=== PATIENT | female | born 1945 | race Caucasian/White ===

== ENCOUNTER → 2018-03-25 12:45 | Outpatient (CLI) | payer MEDICARE, SELFPAY ==
--- NOTE | 2018-03-25 12:47 | ECHOD_ITS ---
Reason For Study: MURMUR Procedure This was a 2D Doppler, Color Flow transthoracic echocardiogram. Myocardial strain analysis was performed in this exam to aid in the assessment of cardiac function. The exam was of adequate technical quality. Exam performed in department. Left Ventricle Normal LV size. Left ventricular systolic function is normal. The estimated ejection fraction is 60 %. The global longitudinal strain = -20 % (normal). Diastolic function is indeterminate. No regional wall motion abnormalities noted. Right Ventricle Normal RV size. Normal systolic function. Atria Normal left atrium. Normal right atrium. No doppler evidence for ASD. Mitral Valve There is no mitral annular calcification. Normal mitral valve. Mild-Moderate (1-2+) mitral valve insufficiency. Tricuspid Valve Normal tricuspid valve. Mild tricuspid valve insufficiency. Right ventricular systolic pressure estimated to be 29 mmHg. Aortic Valve Trisinus/trileaflet aortic valve. Mild focal aortic valve thickening. Trivial aortic valve insufficiency. Pulmonic Valve The pulmonic valve is not well visualized. Trivial pulmonic valve insufficiency. Great Vessels Normal sized aortic root. Calcified aortic root. Pericardium/Pleural Trivial pericardial effusion. There are no echocardiographic indications of cardiac tamponade. MMode/2D Measurements & Calculations LVIDd: 4.5 cm IVSd: 0.93 cm Ao root diam: 3.5 cm LVIDs: 3.3 cm LVPWd: 0.92 cm LA dimension: 3.9 cm RVDd: 3.1 cm FS: 26.8 % LAV(MOD-bp): 43.7 ml LVAd ap4: 27.6 cm2 SV(MOD-sp4): 41.0 ml LAV(MOD-bp) Indexed: 25.0 ml/m2 EDV(MOD-sp4): 77.9 ml LAV(MOD-sp2): 37.8 ml EDV(sp4-el): 82.2 ml LAV(MOD-sp4): 47.1 ml LVAs ap4: 16.9 cm2 ESV(MOD-sp4): 36.8 ml ESV(sp4-el): 38.4 ml EF(MOD-sp4): 52.7 % EF(sp4-el): 53.3 % SV(sp4-el): 43.8 ml LA A4 area: 16.8 cm2 RA A4 area: 13.5 cm2 Time Measurements MV dec time: 0.28 sec Doppler Measurements & Calculations MV E max link: 63.5 cm/sec Lat Peak E' Link: 9.7 cm/sec Med Peak E' Link: 4.8 cm/sec MV A max link: 82.2 cm/sec E/E' lat: 6.6 E/E' med: 13.3 MV E/A: 0.77 Ao V2 max: 171.0 cm/sec AI max link: 411.3 cm/sec LV V1 max: 83.4 cm/sec Ao max P.7 mmHg AI max P.7 mmHg LV V1 max P.8 mmHg Ao V2 mean: 125.2 cm/sec AI dec slope: 227.5 cm/sec2 LV V1 mean P.7 mmHg Ao mean P.9 mmHg AI P1/2t: 529.5 msec LV V1 mean: 62.8 cm/sec Ao V2 VTI: 39.5 cm LV V1 VTI: 19.1 cm PA V2 max: 78.1 cm/sec PI end-d link: 97.8 cm/sec TR max link: 253.5 cm/sec TR max P.0 mmHg Interpretation Summary Left ventricular systolic function is normal. The estimated ejection fraction is 60 %. The global longitudinal strain = -20 % (normal). Mild-Moderate (1-2+) mitral valve insufficiency. Mild tricuspid valve insufficiency. Mild focal aortic valve thickening. Trivial aortic valve insufficiency. Trivial pulmonic valve insufficiency. Calcified aortic root. Trivial pericardial effusion. There are no echocardiographic indications of cardiac tamponade. Right ventricular systolic pressure estimated to be 29 mmHg. Diastolic function is indeterminate. Ordering Physician: James Skinner Referring Physician: JOSHUA TREJO Performed By: Jordyn Moffett, DOREEN, RVT
== END ==
PROVIDERS: Family Provider Family Medicine; PCP Family Medicine; Referring Provider Internal Medicine Cardiovascular Disease; Visit Provider Internal Medicine Cardiovascular Disease
DX: I42.7 Cardiomyopathy due to drug and external agent (principal); I34.0 Nonrheumatic mitral (valve) insufficiency
CPT/HCPCS: 93306

== ENCOUNTER → 2019-03-31 10:45 | Outpatient (CLI) | payer MEDICARE, SELFPAY ==
[2018-09-24 13:17] VITALS: BMI 30.3
--- NOTE | 2019-03-31 10:46 | ECHODONC_ITS ---
Reason For Study: CMP Procedure Myocardial strain analysis was performed in this exam to aid in the assessment of cardiac function. This was a 2D Doppler, Color Flow transthoracic echocardiogram. The exam was of adequate technical quality. Exam performed in department. Left Ventricle Normal LV size. Left ventricular systolic function is normal. The estimated ejection fraction is 55 %. The global longitudinal strain = -18 % (normal). Diastolic function is indeterminate. No regional wall motion abnormalities noted. Right Ventricle Normal RV size. Normal systolic function. Atria Normal left atrium. Normal right atrium. No doppler evidence for ASD. Mitral Valve There is no mitral annular calcification. Mild diffuse mitral valve thickening. Mild (1+) mitral valve insufficiency. Tricuspid Valve Normal tricuspid valve. Mild tricuspid valve insufficiency. Right ventricular systolic pressure estimated to be 23 mmHg. Aortic Valve Trisinus/trileaflet aortic valve. Mild focal aortic valve thickening. Mild focal aortic valve calcification. Trivial aortic valve insufficiency. Pulmonic Valve The pulmonic valve is not well visualized. Mild (1+) pulmonic valve insufficiency. Great Vessels Normal sized aortic root. Pericardium/Pleural No pericardial effusion. MMode/2D Measurements & Calculations LVIDd: 4.6 cm IVSd: 1.0 cm Ao root diam: 3.1 cm LVIDs: 3.3 cm LVPWd: 1.0 cm LA dimension: 3.9 cm RVDd: 3.5 cm FS: 27.7 % LAV(MOD-bp): 57.1 ml LVAd ap4: 28.8 cm2 SV(MOD-sp4): 49.5 ml LAV(MOD-bp) Indexed: 33.4 ml/m2 EDV(MOD-sp4): 86.6 ml LAV(MOD-sp2): 52.2 ml EDV(sp4-el): 90.2 ml LAV(MOD-sp4): 51.5 ml LVAs ap4: 16.6 cm2 ESV(MOD-sp4): 37.1 ml ESV(sp4-el): 37.2 ml EF(MOD-sp4): 57.2 % EF(sp4-el): 58.7 % SV(sp4-el): 53.0 ml LA A4 area: 17.0 cm2 RA A4 area: 14.2 cm2 Time Measurements MV dec time: 0.23 sec Doppler Measurements & Calculations MV E max link: 59.5 cm/sec Lat Peak E' Link: 6.9 cm/sec Med Peak E' Link: 5.7 cm/sec MV A max link: 90.6 cm/sec E/E' lat: 8.6 E/E' med: 10.5 MV E/A: 0.66 MV V2 max: 101.2 cm/sec MV P1/2t max link: 82.3 cm/sec Ao V2 max: 152.7 cm/sec MV max P.1 mmHg MV P1/2t: 74.2 msec Ao max P.3 mmHg MV V2 mean: 54.6 cm/sec MV mean P.4 mmHg MV dec slope: 324.6 cm/sec2 MV V2 VTI: 26.0 cm MVA(P1/2t): 3.0 cm2 AI max link: 397.0 cm/sec LV V1 max: 108.9 cm/sec MR max link: 484.0 cm/sec AI max P.1 mmHg LV V1 max P.7 mmHg MR max P.7 mmHg AI dec slope: 265.9 cm/sec2 MR mean link: 360.4 cm/sec AI P1/2t: 437.2 msec MR mean P.7 mmHg MR VTI: 167.8 cm PA V2 max: 75.1 cm/sec PI end-d link: 83.8 cm/sec TR max link: 225.8 cm/sec TR max P.4 mmHg Interpretation Summary Left ventricular systolic function is normal. The estimated ejection fraction is 55 %. The global longitudinal strain = -18 % (normal). Mild diffuse mitral valve thickening. Mild (1+) mitral valve insufficiency. Mild tricuspid valve insufficiency. Mild focal aortic valve thickening. Mild focal aortic valve calcification. Trivial aortic valve insufficiency. Mild (1+) pulmonic valve insufficiency. Right ventricular systolic pressure estimated to be 23 mmHg. Diastolic function is indeterminate. Ordering Physician: Abhijeet Braun Referring Physician: Abhijeet Braun Performed By: Gary Clarke RCS
== END ==
PROVIDERS: Family Provider Family Medicine; PCP Family Medicine; Referring Provider Nurse Practitioner Family; Visit Provider Nurse Practitioner Family
DX: I42.7 Cardiomyopathy due to drug and external agent (principal)
CPT/HCPCS: 0399T; 93306

== ENCOUNTER → 2020-10-25 12:49 | Outpatient (CLI) | payer MEDICARE, SELFPAY ==
[2020-09-14 11:01] VITALS: BMI 28.5
--- NOTE | 2020-10-25 12:55 | ECHOD_ITS ---
Reason For Study: Cardiomyopathy Procedure This was a 2D Doppler, Color Flow transthoracic echocardiogram. Myocardial strain analysis was performed in this exam to aid in the assessment of cardiac function. Exam performed in department. Left Ventricle Normal LV size. Left ventricular systolic function is normal. The estimated ejection fraction is 60 %. The global longitudinal strain = -18 % (normal). No evidence for diastolic dysfunction. No regional wall motion abnormalities noted. Right Ventricle Normal RV size. Normal systolic function. Atria Normal left atrium. Normal right atrium. No doppler evidence for ASD. Mitral Valve There is no mitral annular calcification. Mild diffuse mitral valve thickening. Mild-Moderate (1-2+) mitral valve insufficiency. Tricuspid Valve Normal tricuspid valve. Mild to moderate (1-2+) tricuspid valve insufficiency. Right ventricular systolic pressure estimated to be 27 mmHg. Aortic Valve Trisinus/trileaflet aortic valve. Mild focal aortic valve thickening. Mild focal aortic valve calcification. Trivial aortic valve insufficiency. Pulmonic Valve The pulmonic valve is not well visualized. Trivial pulmonic valve insufficiency. Great Vessels Normal sized aortic root. Pericardium/Pleural No pericardial effusion. MMode/2D Measurements & Calculations LVIDd: 4.5 cm IVSd: 1.1 cm Ao root diam: 3.7 cm LVIDs: 3.2 cm LVPWd: 0.90 cm LA dimension: 3.8 cm RVDd: 3.4 cm FS: 30.0 % LAV(MOD-bp): 48.9 ml LA A4 area: 19.3 cm2 RA A4 area: 16.3 cm2 LAV(MOD-bp) Indexed: 29.1 ml/m2 LAV(MOD-sp2): 43.9 ml LAV(MOD-sp4): 54.6 ml Time Measurements MV dec time: 0.23 sec Doppler Measurements & Calculations MV E max link: 69.1 cm/sec Lat Peak E' Link: 10.1 cm/sec Med Peak E' Link: 5.9 cm/sec MV A max link: 92.1 cm/sec E/E' lat: 6.8 E/E' med: 11.8 MV E/A: 0.75 MV V2 max: 98.4 cm/sec MV P1/2t max link: 79.6 cm/sec Ao V2 max: 168.2 cm/sec MV max P.9 mmHg MV P1/2t: 90.5 msec Ao max P.3 mmHg MV V2 mean: 49.7 cm/sec MV dec slope: 257.6 cm/sec2 MV mean P.2 mmHg MVA(P1/2t): 2.4 cm2 MV V2 VTI: 30.4 cm AI max link: 453.8 cm/sec LV V1 max: 80.0 cm/sec MR max link: 576.9 cm/sec AI max P.4 mmHg LV V1 max P.6 mmHg MR max P.1 mmHg MR mean link: 429.7 cm/sec AI dec slope: 161.2 cm/sec2 MR mean P.6 mmHg AI P1/2t: 824.7 msec MR VTI: 209.0 cm PA V2 max: 76.1 cm/sec PI end-d link: 93.4 cm/sec TR max link: 247.2 cm/sec TR max P.4 mmHg ECHO/Echo Complete Interpretation Summary Left ventricular systolic function is normal. The estimated ejection fraction is 60 %. The global longitudinal strain = -18 % (normal). Mild diffuse mitral valve thickening. Mild-Moderate (1-2+) mitral valve insufficiency. Mild to moderate (1-2+) tricuspid valve insufficiency. Mild focal aortic valve thickening. Mild focal aortic valve calcification. Trivial aortic valve insufficiency. Trivial pulmonic valve insufficiency. Right ventricular systolic pressure estimated to be 27 mmHg. No evidence for diastolic dysfunction. Ordering Physician: James Skinner Referring Physician: Samir Bennett Performed By: Gary Clarke RCS
== END ==
PROVIDERS: PCP Family Medicine; Referring Provider Internal Medicine Cardiovascular Disease; Visit Provider Internal Medicine Cardiovascular Disease
DX: I42.7 Cardiomyopathy due to drug and external agent (principal)
CPT/HCPCS: 93306

== ENCOUNTER → 2022-04-05 | Outpatient (CLI) | payer MEDICARE, SELFPAY ==
--- NOTE | 2022-04-05 12:59 | ECHOD_ITS ---
Reason For Study: MR Procedure This was a 2D Doppler, Color Flow transthoracic echocardiogram. Exam performed in department. Left Ventricle Normal LV size. Left ventricular systolic function is normal. The estimated ejection fraction is 55 %. The global longitudinal strain = -16% (borderline). Stage 2 diastolic dysfunction. No regional wall motion abnormalities noted. Right Ventricle Normal RV size. Normal systolic function. Atria The left atrium is mildly enlarged. Normal right atrium. No doppler evidence for ASD. Mitral Valve There is mild mitral annular calcification. Extension of the mitral annular calcification onto the base of the posterior mitral valve leaflet. Mild diffuse mitral valve thickening. Moderate (2+) mitral valve insufficiency. Tricuspid Valve Normal tricuspid valve. Mild to moderate (1-2+) tricuspid valve insufficiency. Right ventricular systolic pressure estimated to be 25 mmHg. Aortic Valve Trisinus/trileaflet aortic valve. Mild focal aortic valve calcification. Trivial aortic valve insufficiency. Pulmonic Valve The pulmonic valve is not well visualized. Trivial pulmonic valve insufficiency. Great Vessels Normal sized aortic root. Pericardium/Pleural No pericardial effusion. MMode/2D Measurements & Calculations LVIDd: 4.6 cm IVSd: 0.98 cm Ao root diam: 3.2 cm LVIDs: 3.9 cm LVPWd: 1.1 cm RVDd: 2.9 cm FS: 15.6 % LAV(MOD-bp): 58.5 ml LVAd ap4: 27.1 cm2 SV(MOD-sp4): 34.3 ml LAV(MOD-bp) Indexed: 34.8 ml/m2 LVLd ap4: 7.5 cm LAV(MOD-sp2): 50.0 ml EDV(MOD-sp4): 79.8 ml LAV(MOD-sp4): 65.5 ml EDV(sp4-el): 83.3 ml LVAs ap4: 18.0 cm2 LVLs ap4: 5.7 cm ESV(MOD-sp4): 45.5 ml ESV(sp4-el): 48.2 ml EF(MOD-sp4): 42.9 % EF(sp4-el): 42.1 % SV(sp4-el): 35.0 ml LA A4 area: 20.9 cm2 LA dimension(2D): 4.2 cm RA A4 area: 12.9 cm2 Time Measurements MV dec time: 0.12 sec Doppler Measurements & Calculations MV E max link: 79.8 cm/sec Lat Peak E' Link: 6.9 cm/sec Med Peak E' Link: 3.9 cm/sec MV A max link: 89.0 cm/sec E/E' lat: 11.5 E/E' med: 20.5 MV E/A: 0.90 MV V2 max: 85.1 cm/sec Ao V2 max: 162.1 cm/sec MV max P.9 mmHg MV dec slope: 665.9 cm/sec2 Ao max P.5 mmHg MV V2 mean: 52.5 cm/sec Ao V2 mean: 120.7 cm/sec MV mean P.3 mmHg Ao mean P.5 mmHg MV V2 VTI: 25.2 cm Ao V2 VTI: 43.5 cm AI max link: 402.5 cm/sec PA V2 max: 92.6 cm/sec PI end-d link: 143.6 cm/sec AI max P.9 mmHg PA V2 mean: 60.7 cm/sec AI dec slope: 157.7 cm/sec2 AI P1/2t: 747.5 msec TR max link: 235.7 cm/sec TR max P.2 mmHg ECHO/Echo Complete Interpretation Summary Left ventricular systolic function is normal. The estimated ejection fraction is 55 %. The global longitudinal strain = -16% (borderline). The left atrium is mildly enlarged. There is mild mitral annular calcification. Extension of the mitral annular calcification onto the base of the posterior mi tral valve leaflet. Mild diffuse mitral valve thickening. Moderate (2+) mitral valve insufficiency. Mild to moderate (1-2+) tricuspid valve insufficiency. Mild focal aortic valve calcification. Trivial aortic valve insufficiency. Trivial pulmonic valve insufficiency. Right ventricular systolic pressure estimated to be 25 mmHg. Stage 2 diastolic dysfunction. Ordering Physician: James Skinner Referring Physician: James Skinner Performed By: Deana Obando RCS
== END | disposition home or self-care (01) ==
LOC: CVS 12:58
PROVIDERS: PCP Family Medicine; Referring Provider Internal Medicine Cardiovascular Disease; Visit Provider Internal Medicine Cardiovascular Disease
DX: R94.31 Abnormal electrocardiogram [ECG] [EKG] (principal); I42.7 Cardiomyopathy due to drug and external agent; I34.0 Nonrheumatic mitral (valve) insufficiency
CPT/HCPCS: 93306

== ENCOUNTER → 2023-08-20 | Outpatient (CLI) | payer MEDICARE, SELFPAY ==
--- NOTE | 2023-08-20 16:16 | ECHOD_ITS ---
Reason For Study: ABNORMAL EKG, MURMUR Procedure This was a 2D Doppler, Color Flow transthoracic echocardiogram. Exam performed in department. Left Ventricle Normal LV size. The estimated ejection fraction is 55 %. No evidence for diastolic dysfunction. No regional wall motion abnormalities noted. Right Ventricle Normal RV size. Normal systolic function. Atria Normal left atrium. Normal right atrium. No doppler evidence for ASD. Mitral Valve There is no mitral valve stenosis. Mild (1+) mitral valve insufficiency. Tricuspid Valve There is no tricuspid stenosis. Mild tricuspid valve insufficiency. Pulmonary artery systolic pressure is 30 mmHg. Aortic Valve Aortic sclerosis, no stenosis. There is no aortic stenosis. Mild (1+) aortic valve insufficiency. Pulmonic Valve There is no pulmonic valvular stenosis. Trivial pulmonic valve insufficiency. Great Vessels Normal aortic root. Pericardium/Pleural No pericardial effusion. MMode/2D Measurements & Calculations LVIDd: 4.8 cm IVSd: 0.98 cm Ao root diam: 3.0 cm LVIDs: 3.3 cm LVPWd: 1.00 cm RVDd: 3.4 cm FS: 30.8 % LAV(MOD-bp): 29.4 ml LVAd ap4: 27.2 cm2 SV(MOD-sp4): 48.5 ml LAV(MOD-bp) Indexed: 17.7 ml/m2 LVLd ap4: 7.5 cm LAV(MOD-sp2): 25.7 ml EDV(MOD-sp4): 82.9 ml LAV(MOD-sp4): 33.5 ml EDV(sp4-el): 83.7 ml LVAs ap4: 16.9 cm2 LVLs ap4: 6.9 cm ESV(MOD-sp4): 34.4 ml ESV(sp4-el): 35.3 ml EF(MOD-sp4): 58.5 % EF(sp4-el): 57.8 % SV(sp4-el): 48.4 ml LA A4 area: 14.7 cm2 LA dimension(2D): 3.1 cm RA A4 area: 14.4 cm2 TAPSE: 1.6 cm Time Measurements MV dec time: 0.28 sec Doppler Measurements & Calculations MV E max link: 50.5 cm/sec Lat Peak E' Link: 7.6 cm/sec Med Peak E' Link: 5.4 cm/sec MV A max link: 80.6 cm/sec E/E' lat: 6.7 E/E' med: 9.4 MV E/A: 0.63 Ao V2 max: 161.9 cm/sec AI max link: 491.8 cm/sec LV V1 max: 69.9 cm/sec Ao max P.5 mmHg AI max P.8 mmHg LV V1 max P.0 mmHg AI dec slope: 308.9 cm/sec2 AI P1/2t: 466.3 msec PA V2 max: 65.5 cm/sec TR max link: 250.9 cm/sec TR max P.2 mmHg ECHO/Echo Complete Interpretation Summary The estimated ejection fraction is 55 %. No evidence for diastolic dysfunction. Mild (1+) mitral valve insufficiency. Mild (1+) aortic valve insufficiency. Ordering Physician: Brina High Performed By: Manuela Collazo RDCS
--- OUTSIDE RECORDS SUMMARY | 2023-08-21 02:58 | XMS RPT_ITS | CCD ---
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 Name Role Phone Danny ESPARZA MD, Sherlyn Unavailable [phone] Heron RN, Shannon Unavailable Unavailable Natan ESPARZA, Tray Atkins Primary Care Provider DIAZ KO DO Admitting Unavailable DIAZ KO DO Primary Care Unavailable DIAZ KO DO Attending Unavailable TRAY GAMA Consulting Unavailable TRAY GAMA Referring Unavailable PROVIDER, UNKNOWN Consulting Unavailable PROVIDER, UNKNOWN Consulting Unavailable PROVIDER, UNKNOWN Consulting Unavailable TRAY GAMA Admitting Unavailable TRAY GAMA Primary Care Unavailable TRAY GAMA Consulting Unavailable TRAY GAMA Attending Unavailable PROVIDER, UNKNOWN Consulting Unavailable PROVIDER, UNKNOWN Consulting Unavailable PROVIDER, UNKNOWN Consulting Unavailable Danny ESPARZA MD, Sherlyn Unavailable Heron RN, Shannon Unavailable Unavailable Natan ESPARZA, Tray Atkins Primary Care Provider MICHAEL COTTON Attending Unavailable MICHAEL COTTON Referring Unavailable TRAY GAMA Primary Care Unavailable MICHAEL COTTON Referring Unavailable TRAY GAMA Primary Care Unavailable MICHAEL COTTON Referring Unavailable TRAY GAMA Primary Care Unavailable Tray Gama MD Unavailable Dr. Kavin Maldonado MD Unavailable Dr James Skinner MD Unavailable Dr. David Garcia MD Unavailable Dr. James Patiño DO Unavailable Zhane TOBACCO SIEVE OPERATOR, Elissa Unavailable Saudsharla ARAMBULA, Tammi C Unavailable Unavailable Gogoi (scribe), Hemanta Unavailable UnavailSamir Larkin MD Unavailable Nata TOBACCO SIEVE OPERATOR, Jennifer Unavailable Unavaila mary lou Vences LPN, Brina Unavailable Unavailable Norman PEDERSEN, Samantha A Unavailable Unavaila ble Chadd TOBACCO SIEVE OPERATOR, Jake Unavailable Unavailable Moriah PEDERSEN, Yudelka Rodriguez Unavailable Unavailable Mutersbaugh TOBACCO SIEVE OPERATOR, Keyla K Unavailable Deep Lu PA-C, Myriam Case Unavailable [phone] Omar Hernandez), Joe Unavailable Unavailab le Elizabeth TOOL SETTER, Malou Unavailable Unavailable Richert TOBACCO SIEVE OPERATOR, Kelly L Unavailable Unavailab le Ayaka TOBACCO SIEVE OPERATOR, Gypsy M Unavailable Unavailab le [place] TOBACCO SIEVE OPERATOR, Moon Harman Unavailable Unavailab julian Montemayor MA, Brina Unavailable Unavailable Wengerd TOBACCO SIEVE OPERATOR, Elizabeth Unavailable Unavailabl e Saida TOBACCO SIEVE OPERATOR, Nano N Unavailable Unavaila ble Zaugg TOBACCO SIEVE OPERATOR, Sylvia Unavailable Unavailable Unavailable Unavailable Allergies Allergy Classification Reported Allergen(s) Allergy Type Date of Onset Reaction(s) Facility (10 sources) Cephalexin; Translations: [CEPHALEXIN] Drug Allergy 8 Swelling [facility] Work Phone: (8 sources) Niacin; Translations: [NIACIN] Drug Allergy 6 Swelling [facility] (8 sources) Penicillins; Translations: [PENICILLINS] Propensity to adverse reactions 0 [facility] (7 sources) Seasonal [Other] Propensity to adverse reactions 6 [facility] Work Phone: (1 source) Cephalexin Drug Allergy [facility] Repository (1 source) Cephalexin Drug Allergy [facility] Repository (1 source) Penicillin Drug Allergy [facility] Repository (1 source) OTHER; Translations: [OTHER] Propensity to adverse reactions (disorder) 6 [facility] Repository (2 sources) [facility] Medications Current Medications Medication Drug Class(es) Dates Sig (Normalized) Sig (Original) aspirin 81 mg delayed release oral tablet (9 sources) Platelet Aggregation Inhibitor, Nonsteroidal Anti-inflammatory Drug take 1 tablet by mouth once daily ASPIRIN EC LOW STRENGTH, 81MG (Oral Tablet Delayed Release) ; 1 daily (81 MG) Completed/Discontinued Medications Medication Drug Class(es) Dates Sig (Normalized) Sig (Original) anastrozole 1 mg oral tablet (2 sources) Aromatase Inhibitor End: 01-12-2020 take 1 tablet by mouth once daily Anastrozole 1 MG Oral Tablet ; 1 daily (1 MG) End: 12-Jan-2020 Status: Discontinued azithromycin 500 mg oral tablet (2 sources) Macrolide Antimicrobial Start: 11-05-2012 End: 11-08-2012 take 1 tablet by mouth once daily ZITHROMAX TRI-STEPHANIE, 500MG (Oral Tablet) ; 1 tablet Tablet daily for 3 days Quantity: 3 {Tablet} Refills: 0 Ordered: 05-Nov-2012 MD Samir Bennett Start: 05-Nov-2012 End: 08-Nov-2012 Status: Inactive biotin 1 mg oral tablet (7 sources) take 1 tablet by mouth once daily Biotin 1 mg tab Take 1 tablet by mouth once daily. 0 Active Problems Active Problems Problem Classification Problem Date Documented Date Episodic/Chronic Administrative/social admission (4 sources) Issue of repeat prescriptions 03-08-2016 Episodic Anxiety disorders (20 sources) Anxiety; Translations: [Anxiety disorder, unspecified] 07-31-2023 Chronic Cancer of breast (20 sources) Malignant neoplasm of upper-outer quadrant of female breast; Translations: [Malignant neoplasm of upper-outer quadrant of right female breast] Onset: 05-15-2017 Chronic Cancer of breast (20 sources) History of malignant neoplasm of breast; Translations: [Personal history of malignant neoplasm of breast] Onset: 01-02-2017 12-02-2017 Episodic Chronic obstructive pulmonary disease and bronchiectasis (4 sources) Bronchitis; Translations: [Bronchitis, not specified as acute or chronic] 03-08-2016 Episodic Coronary atherosclerosis and other heart disease (2 sources) Coronary atherosclerosis and other heart disease 08-03-2020 Disorders of lipid metabolism (20 sources) Mixed hyperlipidemia; Translations: [Mixed hyperlipidemia] 07-31-2023 Chronic Esophageal disorders (20 sources) Gastroesophageal reflux disease; Translations: [Gastro-esophageal reflux disease without esophagitis] 07-31-2023 Chronic Essential hypertension (20 sources) Benign essential hypertension; Translations: [Essential (primary) hypertension] 07-31-2023 Chronic Genitourinary symptoms and ill-defined conditions (4 sources) Dysuria; Translations: [Dysuria] 08-15-2019 Episodic Heart valve disorders (8 sources) Heart murmur; Translations: [Cardiac murmur, unspecified] 07-31-2023 Episodic Immunizations and screening for infectious disease (20 sources) Requires vaccination; Translations: [Encounter for immunization] 07-20-2019 Episodic Mood disorders (8 sources) Chronic depression; Translations: [Depressive disorder, not elsewhere classified] 03-08-2016 Chronic Osteoporosis (20 sources) Senile osteoporosis; Translations: [Age-related osteoporosis without current pathological fracture] Onset: 03-12-2017 03-12-2017 Chronic Other aftercare (2 sources) Long-term current use of aromatase inhibitor; Translations: [group home (current) use of aromatase inhibitors] Episodic Other aftercare (6 sources) Long-term (current) use of other medications 03-08-2016 Episodic Other aftercare (6 sources) Taking high risk medication; Translations: [Other skilled nursing (current) drug therapy] 08-02-2020 Episodic Other nutritional; endocrine; and metabolic disorders (18 sources) Obese class I; Translations: [Obesity, unspecified] 07-31-2023 Chronic Other nutritional; endocrine; and metabolic disorders (4 sources) Overweight in adulthood with body mass index of 25 or more but less than 30; Translations: [Body mass index (BMI) 29.0-29.9, adult] 07-31-2023 Episodic Other nutritional; endocrine; and metabolic disorders (8 sources) Overweight; Translations: [Overweight] 07-20-2019 Episodic Other screening for suspected conditions (not mental disorders or infectious disease) (9 sources) Patient encounter status; Translations: [Encounter for screening mammogram for malignant neoplasm of breast] Onset: 03-12-2023 Episodic Other upper respiratory disease (10 sources) Allergic rhinitis; Translations: [Allergic rhinitis, unspecified] 07-31-2023 Chronic Other upper respiratory infections (4 sources) Sinusitis; Translations: [Chronic sinusitis, unspecified] 01-05-2019 Chronic Alma Delia-; endo-; and myocarditis; cardiomyopathy (except that caused by tuberculosis or sexually transmitted disease) (19 sources) 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; 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] Onset: 03-12-2017 03-12-2017 Chronic Past or Other Problems Problem Classification Problem Date Documented Date Episodic/Chronic Other aftercare (1 source) 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 The patient has a balanced diet and takes supplemental vitamins. The patient does not exercise and sleeps 8 hours per night. The patient denies having trouble with bathing, dressing/grooming, toileting, preparing meals and ambulating. The patient denies having trouble with grocery shopping, driving, use of telephone, housework, laundry, preparing/taking medications and finances. The patient performs monthly self breast exam (sees oncologist due to hx or cancer and had right breast removed 2016). The patient has a Healthcare Power of Bank Analyst and a Living Will. Note for MCR Well Adult : Needs refills on meds and would like refill on Lorazapam as well. reviewed by [facility] 01-23-2023 Unclassified (2 sources) Discuss osteoporosis - Had a Dexa Scan 01-09-17 which showed osteoporosis. Is here to discuss treatment options. Is currently being treated for breast cancer. 05-06-2017 Unclassified (2 sources) [facility] Routine Follow up - The patient is here for follow-up of hypertension (Last rtn visit 08/03/14. Lipid and CMP 03/04/15.), hyperlipidemia, depression and GERD. The patient always takes the prescribed medications. No side effects noted. The patient has an active lifestyle but no regular program. The patient's out of office blood pressure checks occur occasionally and dietary compliance is fairly good usually adhering to recommendations. The patient states that breathing effort is stable, there is no recent angina or dyspnea, there are no vision changes or weakness (Scheduled for cataract surgery in April 2015. ), weight has increased (1#), mood is unchanged, sleep patterns have improved and they do not have headaches. Note for Routine chronic follow-up : [employer] form completed. 03-08-2015 Unclassified (2 sources) Cold Symptoms - Symptoms include runny nose (orange drainage; PND), ear pain, sore throat, dry cough (occasional) and facial pain (eye. All of symptoms are on left side.). The onset was gradual 4 day(s) ago. The symptoms occur constantly. The patient describes this as moderate in severity and unchanged. Current treatment includes nasal corticosteroids and acetaminophen (6 this am). The patient has not been exposed to an individual with similar symptoms. Medical history includes seasonal allergies, but patient denies history of recurrent sinusitis, recurrent strep pharyngitis, asthma, tonsillectomy or recurrent ear infections. 09-22-2014 Unclassified (2 sources) Hyperlipidemia - The onset of the hyperlipidemia has been gradual. The hyperlipidemia has been occurring for 5 years. The course has been decreasing. Habits include exercise, non-smoker, lack of dietary modifications and medications as directed. Past medical history includes hypertension. Pertinent family history includes coronary artery disease, stroke, diabetes, hypertension and sudden (sister at 55 anurysm). 05-03-2010 Unclassified (2 sources) [ADDITIONAL REASON] Hypertension - The onset of the hypertension has been gradual. The hypertension has been occurring for 5 years. Habits include adequate exercise, lack of dietary modifications and medications as directed. There is a family history of coronary artery disease, diabetes and hypertension. Note for Hypertension : [facility] 05-03-2010 Urinary tract infections (2 sources) Urinary tract infections 08-15-2019 Results Test Name Value Interpretation Reference Range Facil ity Vital Signs Date Time Vital Sign Value Performing Clinician Faci lity 07-31-2023 12:55-0500 Body height 154.94 cm Jake Florentino LPN [facility], [facility]. 07-31-2023 12:55-0500 Body mass index (BMI) [Ratio] 28.72 kg/m2 Jake Florentino LPN [facility], [facility].; [facility], [facility]. 07-31-2023 12:55-0500 Body surface area Derived from formula 1.68 m2 Jake Florentino LPN [facility], [facility].; [facility], [facility]. 07-31-2023 12:55-0500 Body weight 68.95 kg Jake Florentino LPN [facility], [facility].; [facility], [facility]. 07-31-2023 12:55-0500 Diastolic blood pressure 60 mm[Hg] Jake Florentino LPN [facility] Encounters Encounter Date Encounter Type Care Provider Facility Start: 07-31-2023 End: 07-31-2023 Office outpatient visit 25 minutes Tray Gama MD Work Phone: [facility] Start: 03-19-2023 End: 03-19-2023 ambulatory Michael Cotton VP CARE MANAGEMENT.DEEP TISSUE MASSAGE THERAPIST Work Phone: Hematology/Oncology Procedures Date Procedure Procedure Detail Performing Clinician Start: 03-12-2023 Screening digital br east tomosynthesis bi Michael Cotton VP CARE MANAGEMENT.DEEP TISSUE MASSAGE THERAPIST Work Phone: Start: 01-23-2023 End: 01-23-2023 Adv care pln/ no alt dcsn mkr docd or refusal Tray Gama MD Work Phone: Start: 01-23-2023 End: 01-23-2023 Depression screening Tray Gama MD Work Phone: Start: 01-23-2023 End: 01-23-2023 Falls risk assessment documented Tray Gama MD Work Phone: Start: 01-23-2023 End: 01-23-2023 PPPS, subseq visit Tray Gama MD Work Phone: Start: 01-23-2023 End: 01-23-2023 Pt falls assess docd w/o fall/injury past year Tray Gama MD Work Phone: Start: 01-23-2023 End: 01-23-2023 Scr dep neg, no plan reqd Tray Gama MD Work Phone: Start: 03-28-2022 Dxa bone density kirsten dy 1/> sites axial skel Michael Cotton VP CARE MANAGEMENT.DEEP TISSUE MASSAGE THERAPIST Work Phone: Start: 02-22-2022 AMOR SCREENING W CLAUDY Da joseph Cotton VP CARE MANAGEMENT.DEEP TISSUE MASSAGE THERAPIST Work Phone: Start: 02-22-2022 Mammography Screen Wst r Start: 01-09-2022 End: 01-09-2022 Adv care pln/ no alt dcsn mkr docd or refusal Tray Gama MD Work Phone: Start: 01-09-2022 End: 01-09-2022 Depression screening Tray Gama MD Work Phone: Start: 01-09-2022 End: 01-09-2022 Falls risk assessment documented Tray Gama MD Work Phone: Start: 01-09-2022 End: 01-09-2022 PPPS, subseq visit Tray Gama MD Work Phone: Start: 01-09-2022 End: 01-09-2022 Pt falls assess docd w/o fall/injury past year Tray Gama MD Work Phone: Start: 01-09-2022 End: 01-09-2022 Scr dep neg, no plan reqd Tray Gama MD Work Phone: Start: 12-22-2021 End: 12-22-2021 Lab findings surveillance Jennifer Hernandezhever merloser TOBACCO SIEVE OPERATOR Plan of Treatment Date Care Activity Detail Author Start: 02-05-2024 Patient encounter procedure Medical; [facility] Start: 05-Feb-2024 13:10 MD Tray Gama Appointment Request [facility] Start: 02-22-2023 Mammography MAMMOGRAM [facility] Start: 02-08-2023 Covid-19 Vaccine () Covid-19 Vaccine () [facility] Start: 02-08-2023 Influenza vaccination Influenza Vaccine (#1) [facility] Start: 08-01-2022 Covid-19 Vaccine (5 - Pfizer series) Covid-19 Vaccine (5 - Pfizer series) [facility] Start: 06-10-2022 Advance Directive Discussion Advance Directive Discussion [facility] Start: 06-10-2022 Depression Assessment Depression Assessment [facility] Start: 05-30-2022 Colonoscopy COLONOSCOPY [facility] Start: 05-30-2022 COLORECTAL CANCER SCREENING COLORECTAL CANCER SCREENING [facility] Start: 02-08-2022 Influenza vaccination INFLUENZA (#1) [facility] Start: 01-29-2022 Lipid 1996 panel - Serum or Plasma Lipid Screening [facility] Start: 01-29-2022 LIPID SCREEN LIPID SCREEN [facility] Start: 08-06-2021 COVID-19 VACCINE (4 - Booster for Pfizer series) COVID-19 VACCINE (4 - Booster for Pfizer series) [facility] Start: 06-10-2021 ADVANCE DIRECTIVE DISCUSSION ADVANCE DIRECTIVE DISCUSSION [facility] Start: 06-10-2021 DEPRESSION ASSESSMENT DEPRESSION ASSESSMENT [facility] Start: 05-31-2021 COVID-19 VACCINE (4 - Booster for Pfizer series) COVID-19 VACCINE (4 - Booster for Pfizer series) [facility] Start: 03-12-2020 DIABETES SCREEN DIABETES SCREEN [facility] Start: 03-12-2020 Diabetes Screening Diabetes Screening [facility] Start: 03-08-2017 Pneumococcal Vaccine: 65+ (2 - PPSV23 or PCV20) Pneumococcal Vaccine: 65+ (2 - PPSV23 or PCV20) [facility] Start: 03-08-2017 PNEUMOCOCCAL: 65+ (2 - PPSV23 if available, else PCV20) PNEUMOCOCCAL: 65+ (2 - PPSV23 if available, else PCV20) [facility] Start: 03-08-2017 PNEUMOCOCCAL: 65+ (2 - PPSV23 or PCV20) PNEUMOCOCCAL: 65+ (2 - PPSV23 or PCV20) [facility] Start: 08-09-2015 SHINGRIX VACCINE (2 of 3) SHINGRIX VACCINE (2 of 3) [facility] Start: 2007 RSV Vaccine (1 - 1-dose 60+ series) RSV Vaccine (1 - 1-dose 60+ series) [facility] Start: 09-17-1992 COLOGUARD (FIT-DNA) COLOGUARD (FIT-DNA) [facility] Start: 09-17-[address] COLONOGRAPHY [facility] Start: 09-17-1992 FECAL OCCULT BLOOD FECAL OCCULT BLOOD [facility] Start: 09-17-1992 SIGMOIDOSCOPY SIGMOIDOSCOPY [facility] Start: 09-17-1966 Urine microalbumin profile [facility] Start: 1959 Adult depression screening assessment DEPRESSION SCREENING [facility] End: 03-29-2023 Dxa bone density study 1/> sites axial skel DXA-AXIAL SKELETON Radiology Routine group home (current) use of aromatase inhibitors Menopause 1 Occurrences starting 02/27/2022 until 03/29/2023 [facility] Work Phone: Immunizations Immunization Date Immunization Notes Care Provider Fa denisety 07-22-2023 zoster vaccine recombinant Tray Gama MD [facility]; [employer]. 03-18-2023 influenza, injectabl e, quadrivalent, preservative free Tray Gama MD Work Phone: [facility] [employer]; [place] [employer] 03-31-2022 COVID-Moderna (100 MCG/0.5 ML) Tray Gama MD Work Phone: [place] [employer] 03-13-2022 influenza virus vaccine, unspecified formulation Mammography Coordinator [facility] 03-31-2021 COVID-Pfizer (30 MCG/0.3 ML) Tray Gama MD Work Phone: [facility]; [employer]. 08-03-2020 COVID-19 vaccine, ag e 12+ yr (PFIZER-BIONTECH - PURPLE TOP) Screen [facility] 07-08-2020 COVID-19 vaccine, ag e 12+ yr (PFIZER-BIONTECH - PURPLE TOP) Screen [facility] 04-07-2019 influenza, injectabl e, quadrivalent, contains preservative Tray Gama MD Work Phone: [facility]; [employer] Payers Date Payer Category Payer Medicare [id number] 2019 Unknown [id number] 1945 Unknown [id number] 1945 Unknown [id number] [facility] [id number] Social History Date Type Detail Facility Start: 01-08-2012 [facility] Work Phone: End: 10-09-1999 History of tobacco use Current smoker [facility] Work Phone: End: 10-09-1999 History of tobacco use Cigarette Smoker [facility] Work Phone: Start: 01-08-2012 End: 03-12-2023 Cigarettes smoked current (pack per day) - Reported 1 [employer] [facility]; [place]. Start: 01-08-2012 Tobacco use and exposure Smokeless tobacco non-user [facility] Work Phone: Start: 08-15-2021 End: 02-27-2022 Alcohol intake Current drinker of alcohol (finding) [facility] Start: 1945 Sex Assigned At Not on file C [facility] Start: 02-27-2022 End: 03-12-2023 Tobacco use panel [facility] National Score (1-10 0), lower number is lower risk 80 [facility] Alcohol Use: Alcohol Use: ; 7 or fewer drinks per week. [employer] [facility] Tobacco Use: Tobacco Use: ; F ormer smoker. [employer]; [employer]. Female [place] [employer]; [employer] Work Phone: Clinical Notes 02-22-2022 to 03-19-2023 Michael Cotton APRN.DEEP TISSUE MASSAGE THERAPIST - 03/19/2023 11:31 AM Rina - Yari, Mammography - 03/12/2023 2:28 PM Natan Shepard, RT(R) - 03/28/2022 11:00 AM EDT Note Date & Type Note Facility 03-19-2023 Note HNO ID: [id number] Author: Michael Cotton APRN.DEEP TISSUE MASSAGE THERAPIST Service: ? Author Type: Nurse Practitioner Type: Progress Notes Filed: 03/19/2023 1:10 PM Note Text: Chief Complaint Patient presents with: Established Patient HPI: Minerva Gonzalez is a 77 year old female who presents here today for follow up breast cancer. Per Dr. Patiño's previous note: H/o hypertension and osteopenia. Had an abnormality of the right breast on follow up mammogram 11/2015. She underwent a core needle biopsy of the right breast lesion on 12/08/2015. Pathology identified invasive ductal carcinoma, nuclear grade 3. Estrogen receptors were positive (>95%; strong) and positive for progesterone receptors (25%; strong). HER-2 was quantified at 3+. The patient underwent a right mastectomy on 01/25/2016. The final pathology demonstrated that within the breast there was a 1.5 cm tumor. There was only a single focus of disease. DCIS was noted to comprise about 30% of the tumor volume. Histologic grade was 3. Margins were negative. Closest was 2 mm from the posterior margin. Lymphovascular invasion was not identified. One sentinel lymph node was removed. It was negative for disease. Recovered well from surgery. Previous therapy: 1) AC followed by paclitaxel/Herceptin. 2) Anastrozole. Began August 2016. 3) Herceptin. Exemestane--was prescribed but cost prohibitive. I had recommended this treatment when anastrozole was causing intolerable musculoskeletal side effects. Previous therapy: 1) Letrozole. She is under the care of a farm management adviser for her cardiomyopathy. Most recent echocardiogram performed on 12/28/2016 showed a persistent ejection fraction 40%. She also had mild to moderate mitral valve insufficiency and tricuspid valve insufficiency. She was symptomatic and get short of breath with exertion. Had repeat echocardiogram done on 03/05/2017. It demonstrated improved ejection fraction at 50%. ECHO fall 2017 EF 60% No new concerns today. Appetite: It's ok. Energy level: It's ok. Working part-time. Denies fevers or recent illness. Resp:denies cough or sob, occ srivastava with steps Cardiac:denies chest pain/palpitations-ECHO per cardiology GI:denies abd pain, n/v, moving bowels regularly :denies dysuria/hematuria Extrem:denies pain to back/bones/joints Endo:denies hot flashes Neuro:neuropathy to fingers-resolved, toes-resolved Skin:denies rashes/lesions Heme:denies bleeding The ROS is otherwise negative. Past medical history, appointments, medications, allergies reviewed. No changes. EXAM: BP 125/71 Pulse 81 Temp 36.6 ?C (97.9 ?F) (Temporal) Wt 71.2 kg (157 lb) SpO2 99% BMI 29.66 kg/m? APPEARANCE Well appearing, alert, in no acute distress, well-hydrated, well nourished. HEART RRR with normal S1 and S2, no murmurs LUNG clear to auscultation BREAST FEMALE R mastectomy scar, no nodule, L no mass/nodule LYMPH NODES No cervical lymphadenopathy, No supraclavicular lymphadenopathy, and No axillary lymphadenopathy. ABDOMEN bowel sounds normoactive, soft, non-tender EXTREMITIES No edema NEURO Awake, alert and oriented x 3, Normal gait, and No involuntary motions. SKIN Skin color, texture, turgor normal, no suspicious rashes or lesions RADIOLOGY: L mammogram 03/12/23: IMPRESSION: NEGATIVE There is no mammographic evidence of malignancy. A 1 year screening mammogram is recommended. The exam was reviewed by a staff physician. ASSESSMENT/PLAN: 1. Personal history of breast cancer - ICD9: V10.3, ICD10: Z85.3 pT1c pN0(sln) MX ER/MT positive, HER2 over-expressed bess I invasive ductal carcinoma of the right breast. KPS is 100%. - No concerning findings on exam. - Tolerated femara well. - Reviewed L mammogram with pt. - Bone density per PCP. - Completed AI arimidex/femara 2021. - Continue to f/u with cardiology. - L mammogram due in 2023. - Follow up after mammogram. - Pt. aware to call office with any questions/concerns. The patient indicates understanding of these issues and agrees with the plan. All documentation from previous visit of 02/27/22-Dr. Patiño/myself was copied and pasted, documentation has been reviewed and edited as necessary for today's visit. Michael Cotton, CHRISSIE.[facility] 03-19-2023 History of Presen t illness Narrative Chief Complaint Patient presents with: Established Patient HPI: Minerva Gonzalez is a 77 year old female who presents here today for follow up breast cancer. Per Dr. Patiño's previous note: H/o hypertension and osteopenia. Had an abnormality of the right breast on follow up mammogram 11/2015. She underwent a core needle biopsy of the right breast lesion on 12/08/2015. Pathology identified invasive ductal carcinoma, nuclear grade 3. Estrogen receptors were positive (>95%; strong) and positive for progesterone receptors (25%; strong). HER-2 was quantified at 3+. The patient underwent a right mastectomy on 01/25/2016. The final pathology demonstrated that within the breast there was a 1.5 cm tumor. There was only a single focus of disease. DCIS was noted to comprise about 30% of the tumor volume. Histologic grade was 3. Margins were negative. Closest was 2 mm from the posterior margin. Lymphovascular invasion was not identified. One sentinel lymph node was removed. It was negative for disease. Recovered well from surgery. Previous therapy: 1) AC followed by paclitaxel/Herceptin. 2) Anastrozole. Began August 2016. 3) Herceptin. Exemestane--was prescribed but cost prohibitive. I had recommended this treatment when anastrozole was causing intolerable musculoskeletal side effects. Previous therapy: 1) Letrozole. She is under the care of a farm management adviser for her cardiomyopathy. Most recent echocardiogram performed on 12/28/2016 showed a persistent ejection fraction 40%. She also had mild to moderate mitral valve insufficiency and tricuspid valve insufficiency. She was symptomatic and get short of breath with exertion. Had repeat echocardiogram done on 03/05/2017. It demonstrated improved ejection fraction at 50%. ECHO fall 2017 EF 60% No new concerns today. Appetite: It's ok. Energy level: It's ok. Working part-time. Denies fevers or recent illness. Resp:denies cough or sob, occ srivastava with steps Cardiac:denies chest pain/palpitations-ECHO per cardiology GI:denies abd pain, n/v, moving bowels regularly :denies dysuria/hematuria Extrem:denies pain to back/bones/joints Endo:denies hot flashes Neuro:neuropathy to fingers-resolved, toes-resolved Skin:denies rashes/lesions Heme:denies bleeding The ROS is otherwise negative. Past medical history, appointments, medications, allergies reviewed. No changes. EXAM: BP 125/71 Pulse 81 Temp 36.6 C (97.9 F) (Temporal) Wt 71.2 kg (157 lb) SpO2 99% BMI 29.66 kg/m APPEARANCE Well appearing, alert, in no acute distress, well-hydrated, well nourished. HEART RRR with normal S1 and S2, no murmurs LUNG clear to auscultation BREAST FEMALE R mastectomy scar, no nodule, L no mass/nodule LYMPH NODES No cervical lymphadenopathy, No supraclavicular lymphadenopathy, and No axillary lymphadenopathy. ABDOMEN bowel sounds normoactive, soft, non-tender EXTREMITIES No edema NEURO Awake, alert and oriented x 3, Normal gait, and No involuntary motions. SKIN Skin color, texture, turgor normal, no suspicious rashes or lesions RADIOLOGY: L mammogram 03/12/23: IMPRESSION: NEGATIVE There is no mammographic evidence of malignancy. A 1 year screening mammogram is recommended. The exam was reviewed by a staff physician. ASSESSMENT/PLAN: 1. Personal history of breast cancer - ICD9: V10.3, ICD10: Z85.3 pT1c pN0(sln) MX ER/MT positive, HER2 over-expressed bess I invasive ductal carcinoma of the right breast. KPS is 100%. - No concerning findings on exam. - Tolerated femara well. - Reviewed L mammogram with pt. - Bone density per PCP. - Completed AI arimidex/femara 2021. - Continue to f/u with cardiology. - L mammogram due in 2023. - Follow up after mammogram. - Pt. aware to call office with any questions/concerns. The patient indicates understanding of these issues and agrees with the plan. All documentation from previous visit of 02/27/22-Dr. Patiño/myself was copied and pasted, documentation has been reviewed and edited as necessary for today's visit. Michael Cotton APRN.WELSEY documented in this encounter [facility] 03-12-2023 Miscellaneous Notes March 14, 2023 PID: [id number] Minerva Gonzalez [address] [place] [id number] Dear Ms. Gonzalez, We are pleased to inform you that the results of your recent breast imaging exam on 03/12/2023 are normal. Your mammogram demonstrates that you have dense breast tissue, which could hide abnormalities. Dense breast tissue, in and of itself, is a relatively common condition. Therefore, this information is not provided to cause undue concern; rather, it is to raise your awareness and promote discussion with your health care provider regarding the presence of dense breast tissue in addition to other risk factors. Early detection of cancer is very important. We also understand recommendations regarding breast cancer screening are controversial. Please discuss with your primary care provider which strategy is best for you and whether a mammogram is right for you. Your imaging studies and report will be kept on file at [facility] as part of your permanent medical record and are available for your continuing care. Thank you for allowing us to help in meeting your health care needs. Sincerely, Dr. Alcantar Interpreting Radiologist [facility] (Normal over 40) documented in this encounter [facility] 03-28-2022 Note HNO ID: [id number] Author: RT Silverio(Judie) Service: ? Author Type: Technologist Type: Progress Notes Filed: 03/28/2022 11:10 AM Note Text: Radiology Service Progress Note PATIENT NAME: Minerva Gonzalez DATE OF SERVICE: March 28, 2022 TIME: 11:10 AM PATIENT IDENTITY VERIFICATION COMPLETED USING TWO (2) IDENTIFIERS: Name and Date of confirmed by patient verbally. FALL SCREENING: Has the patient had 2 falls in the last year or 1 fall with injury or currently using an Ambulatory Assistive Device (Walker, Cane, Wheelchair, Crutches, etc.)? No PATIENT GENDER DATA: Female. status: : No status: NO. PATIENT RELEVANT IMPLANT DATA REVIEWED: Not Applicable RADIOLOGY DEPARTMENT: Bone Density PERIPHERAL IV DATA: Not applicable SIGNED BY: RT Silverio(R) March 28, 2022 11:10 AM [facility] 03-28-2022 History of Presen t illness Narrative Radiology Service Progress Note PATIENT NAME: Minerva Gonzalez DATE OF SERVICE: March 28, 2022 TIME: 11:10 AM PATIENT IDENTITY VERIFICATION COMPLETED USING TWO (2) IDENTIFIERS: Name and Date of confirmed by patient verbally. FALL SCREENING: Has the patient had 2 falls in the last year or 1 fall with injury or currently using an Ambulatory Assistive Device (Walker, Cane, Wheelchair, Crutches, etc.)? No PATIENT GENDER DATA: Female. status: : No status: NO. PATIENT RELEVANT IMPLANT DATA REVIEWED: Not Applicable RADIOLOGY DEPARTMENT: Bone Density PERIPHERAL IV DATA: Not applicable SIGNED BY: Trenton Shepard RT(R) March 28, 2022 11:10 AM documented in this encounter [facility] 02-27-2022 History of Presen t illness Narrative Chief Complaint Patient presents with: Established Patient HPI: Minerva Gonzalez is a 76 year old female who presents here today for follow up breast cancer. Per Dr. Patiño's previous note: H/o hypertension and osteopenia. Had an abnormality of the right breast on follow up mammogram 11/2015. She underwent a core needle biopsy of the right breast lesion on 12/08/2015. Pathology identified invasive ductal carcinoma, nuclear grade 3. Estrogen receptors were positive (>95%; strong) and positive for progesterone receptors (25%; strong). HER-2 was quantified at 3+. The patient underwent a right mastectomy on 01/25/2016. The final pathology demonstrated that within the breast there was a 1.5 cm tumor. There was only a single focus of disease. DCIS was noted to comprise about 30% of the tumor volume. Histologic grade was 3. Margins were negative. Closest was 2 mm from the posterior margin. Lymphovascular invasion was not identified. One sentinel lymph node was removed. It was negative for disease. Recovered well from surgery. Previous therapy: 1) AC followed by paclitaxel/Herceptin. 2) Anastrozole. 3) Herceptin. Exemestane--was prescribed but cost prohibitive. I had recommended this treatment when anastrozole was causing intolerable musculoskeletal side effects. Current therapy: 1) Letrozole. She is under the care of a farm management adviser for her cardiomyopathy. Most recent echocardiogram performed on 12/28/2016 showed a persistent ejection fraction 40%. She also had mild to moderate mitral valve insufficiency and tricuspid valve insufficiency. She was symptomatic and get short of breath with exertion. Had repeat echocardiogram done on 03/05/2017. It demonstrated improved ejection fraction at 50%. ECHO fall 2017 EF 60% I had covid in November. Appetite: It's ok. I have to make myself eat since my . Wt. down 4# since August. Energy level: My energy level is decent. Working part-time. Denies fevers or recent illness. Resp:denies cough or sob Cardiac:denies chest pain/palpitations-ECHO per cardiology-Appt. next month GI:denies abd pain, n/v, moving bowels regularly :denies dysuria/hematuria Extrem:denies pain to back/bones/joints Endo:denies hot flashes Neuro:neuropathy to fingers-resolved, toes-resolved Skin:denies rashes/lesions Heme:denies bleeding The ROS is otherwise negative. Past medical history, appointments, medications, allergies reviewed. No changes. EXAM: BP 118/69 Pulse 77 Temp 36.7 C (98 F) Wt 70.3 kg (155 lb) SpO2 98% BMI 29.29 kg/m HEART RRR with normal S1 and S2, no murmurs LUNG clear to auscultation BREAST FEMALE R mastectomy scar, no nodule, L no mass/nodule LYMPH NODES No cervical lymphadenopathy, No supraclavicular lymphadenopathy, and No axillary lymphadenopathy. ABDOMEN bowel sounds normoactive, soft, non-tender, non-distended, without organomegaly or palpable masses, no tenderness to palpation EXTREMITIES No edema NEURO Awake, alert and oriented x 3, Normal gait, and No involuntary motions. SKIN Skin color, texture, turgor normal, no suspicious rashes or lesions RADIOLOGY: L mammogram 02/22/22: IMPRESSION: NEGATIVE There is no mammographic evidence of malignancy. A 1 year screening mammogram is recommended. ASSESSMENT/PLAN: 1. Malignant neoplasm of upper-outer quadrant of right breast in female, estrogen receptor positive (HCC) - ICD9: 174.4, V86.0, ICD10: C50.411, Z17.0 pT1c pN0(sln) MX ER/MT positive, HER2 over-expressed bess I invasive ductal carcinoma of the right breast. KPS is 100%. - No concerning findings on exam. - Tolerating femara well. - Reviewed L mammogram with pt. - Bone density per PCP. - Continue femara. Rx done. - Continue to f/u with cardiology. - Bone density soon. - L mammogram due in 2022. - Follow up after mammogram. - Pt. aware to call office with any questions/concerns. The patient indicates understanding of these issues and agrees with the plan. All documentation from previous visit of 08/15/21-Dr. Patiño/myself was copied and pasted, documentation has been reviewed and edited as necessary for today's visit. Michael Cotton APRN.WESLEY documented in this encounter [facility] 02-22-2022 Miscellaneous Notes February 22, 2022 PID: [id number] Minerva Gonzalez [address] [id number] Dear Becka Lisa, We are pleased to inform you that the results of your recent breast imaging exam on 02/22/2022 are normal. Your mammogram demonstrates that you have dense breast tissue, which could hide abnormalities. Dense breast tissue, in and of itself, is a relatively common condition. Therefore, this information is not provided to cause undue concern; rather, it is to ra ise your awareness and promote discussion with your health care provider regarding the presence of dense breast tissue in addition to other risk factors. Early detection of cancer is very important. We also understand recommendations regarding breast cancer screening are controversial. Please discuss with your primary care provider which strategy is best for you and whether a mammogram is right for you. Your imaging studies and report will be kept on file at [facility] as part of your permanent medical record and are available for your continuing care. Thank you for allowing us to help in meeting your health care needs. Sincerely, Dr. Hewitt Interpreting Radiologist [facility] (Normal over 40) documented in this encounter [facility] 02-22-2022 History of Presen t illness Narrative Radiology Service Progress Note PATIENT NAME: Minerva Gonzalez DATE OF SERVICE: February 22, 2022 TIME: 11:27 AM PATIENT IDENTITY VERIFICATION COMPLETED USING TWO (2) IDENTIFIERS: Name and Date of confirmed by patient verbally. FALL SCREENING: Has the patient had 2 falls in the last year or 1 fall with injury or currently using an Ambulatory Assistive Device (Walker, Cane, Wheelchair, Crutches, etc.)? No PATIENT GENDER DATA: Female. status: : No status: NO. 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 Menopause Symptomatic menopausal or female climacteric states Encounter for screening mammogram for high-risk patient [facility] [place] [facility] Diagnosis group home (current) use of aromatase inhibitors Menopause Symptomatic menopausal or female climacteric states documented in this encounter [facility] note* Diagnosis Personal history of breast cancer- Primary Personal history of malignant neoplasm of breast Encounter for screening mammogram for high-risk patient documented in this encounter [facility] note* Diagnosis Malignant neoplasm of upper-outer quadrant of right breast in female, estrogen receptor positive (HCC) Encounter for screening mammogram for high-risk patient documented in this encounter [facility] for referral (narrative)* Diagnostic Procedure Only (Routine) - Closed Specialty Diagnoses / Procedures Referred By Elijah knutson Referred To Contact [facility] Diagnoses Malignant neoplasm of upper-outer quadrant of right breast in female, estrogen receptor positive (HCC) Encounter for screening mammogram for high-risk patient Procedures AMOR SCREENING W CLAUDY SCREENING DIGITAL BREAST TOMOSYNTHESIS BI SCREENING MAMMOGRAPHY BI 2-VIEW BREAST INC Michael Mclaen APRN.CNP [address] [place] [address] [facility] [address] [place] [phone] Referral ID Status Reason Start Date Expiration Date V isits Requested Visits Authorized [id number] Closed Auto-Generate d Referral 08/15/2021 09/14/2022 1 1 [facility] for referral (narrative)* Diagnostic Procedure Only (Routine) - Authorized Specialty Diagnoses / Procedures Referred By Elijah knutson Referred To Contact [facility] Diagnoses Malignant neoplasm of upper-outer quadrant of right breast in female, estrogen receptor positive (HCC) Encounter for screening mammogram for high-risk patient Procedures AMOR SCREENING W CLAUDY SCREENING DIGITAL BREAST TOMOSYNTHESIS BI SCREENING MAMMOGRAPHY BI 2-VIEW BREAST INC Michael Mclean APRN.DEEP TISSUE MASSAGE THERAPIST [address] [place] [address] [facility] [address] [place] [address] Referral ID Status Reason Start Date Expiration Date Visits Requested Visits Authorized [id number] Authorized Auto-Generat ed Referral 02/27/2022 03/29/2023 1 1 T [facility] for referral (narrative)* Diagnostic Procedure Only (Routine) - Authorized Specialty Diagnoses / Procedures Referred By Elijah knutson Referred To Contact [facility] Diagnoses Personal history of breast cancer Encounter for screening mammogram for high-risk patient Procedures AMOR SCREENING W CLAUDY SCREENING DIGITAL BREAST TOMOSYNTHESIS BI SCREENING MAMMOGRAPHY BI 2-VIEW BREAST INC Michael Mclean APRN.DEEP TISSUE MASSAGE THERAPIST [address] [place] [address] [facility] [address] [place] [address] Referral ID Status Reason Start Date Expiration Date Visits Requested Visits Authorized [id number] Authorized Auto-Generat ed Referral 04/17/2024 1 1 [facility] for referral (narrative)* Diagnostic Procedure Only (Routine) - Closed Specialty Diagnoses / Procedures Referred By Elijah knutson Referred To Contact [facility] Diagnoses Malignant neoplasm of upper-outer quadrant of right breast in female, estrogen receptor positive (HCC) Encounter for screening mammogram for high-risk patient Procedures AMOR SCREENING W CLAUDY SCREENING DIGITAL BREAST TOMOSYNTHESIS BI SCREENING MAMMOGRAPHY BI 2-VIEW BREAST INC Michael Mclean APRN.DEEP TISSUE MASSAGE THERAPIST [address] [place] [address] [facility] [address] [place] [address] Referral ID Status Reason Start Date Expiration Date V isits Requested Visits Authorized [id number] Closed Auto-Generate d Referral 02/27/2022 03/29/2023 1 1 [facility] for visit Narrative* Diagnostic Procedure Only (Routine) - Closed Specialty Diagnoses / Procedures Referred By Contac t Referred To Contact [facility] Diagnoses Malignant neoplasm of upper-outer quadrant of right breast in female, estrogen receptor positive (HCC) Encounter for screening mammogram for high-risk patient Procedures AMOR SCREENING W CLAUDY SCREENING DIGITAL BREAST TOMOSYNTHESIS BI SCREENING MAMMOGRAPHY BI 2-VIEW BREAST INC Michael Mclean, CHRISSIE.DEEP TISSUE MASSAGE THERAPIST [address] [place] [address] [facility] [address] [place] [address] Referral ID Status Reason Start Date Expiration Date V isits Requested Visits Authorized [id number] Closed Auto-Generate d Referral 08/15/2021 09/14/2022 1 1 [facility] for visit Narrative* Diagnostic Procedure Only (Routine) - Closed Specialty Diagnoses / Procedures Referred By Contac t Referred To Contact [facility] Diagnoses Malignant neoplasm of upper-outer quadrant of right breast in female, estrogen receptor positive (HCC) Encounter for screening mammogram for high-risk patient Procedures AMOR SCREENING W CLAUDY SCREENING DIGITAL BREAST TOMOSYNTHESIS BI SCREENING MAMMOGRAPHY BI 2-VIEW BREAST INC Michael Mclean, CHRISSIE.DEEP TISSUE MASSAGE THERAPIST [address] [place] [address] [facility] [address] [place] [address] Referral ID Status Reason Start Date Expiration Date V isits Requested Visits Authorized [id number] Closed Auto-Generate d Referral 02/27/2022 03/29/2023 1 1 [facility] Summary Purpose Family History Cancer Status:Active Comments:Mother. pancreas Cerebrovascular Accident Status:Active Comment s:Father. Coronary Artery Disease Status:Active Comments :Father. Mother. Diabetes Mellitus Type II Status:Active Commen ts:Father. Hypertension Status:Active Comments:Father. Prostate Cancer Status:Active Comments:Father. Cancer Status:Active Comments:Mother. pancreas Cerebrovascular Accident Status:Active Comment s:Father. Coronary Artery Disease Status:Active Comments :Father. Mother. Diabetes Mellitus Type II Status:Active Commen ts:Father. Hypertension Status:Active Comments:Father. Prostate Cancer Status:Active Comments:Father. Advance Directives No Advanced Directives Records FoundNo Advanced Directives Records Found Additional Source Comments Source Comments (unrecognize d section and content) In the event this informatio n is protected by the Federal Confidentiality of Alcohol and Drug Abuse Patient Records regulations: The Federal rules restrict any use of the information to criminally investigate or prosecute any alcohol or drug abuse patient.[facility] event this information is protected by the Federal Confidentiality of Alcohol and Drug Abuse Patient Records regulations: The Federal rules restrict any use of the information to criminally investigate or prosecute any alcohol or drug abuse patient.[facility] the event this information is protected by the Federal Confidentiality of Alcohol and Drug Abuse Patient Records regulations: The Federal rules restrict any use of the information to criminally investigate or prosecute any alcohol or drug abuse patient.[facility] the event this information is protected by the Federal Confidentiality of Alcohol and Drug Abuse Patient Records regulations: The Federal rules restrict any use of the information to criminally investigate or prosecute any alcohol or drug abuse patient.[facility] the event this information is protected by the Federal Confidentiality of Alcohol and Drug Abuse Patient Records regulations: The Federal rules restrict any use of the information to criminally investigate or prosecute any alcohol or drug abuse patient.[facility] the event this information is protected by the Federal Confidentiality of Alcohol and Drug Abuse Patient Records regulations: The Federal rules restrict any use of the information to criminally investigate or prosecute any alcohol or drug abuse patient.[facility] the event this information is protected by the Federal Confidentiality of Alcohol and Drug Abuse Patient Records regulations: The Federal rules restrict any use of the information to criminally investigate or prosecute any alcohol or drug abuse patient.[facility] Care Teams (unrecognized sec tion and content) Forming Machine Upkeep Mechanic Helper Relationship Specialty Start Date End Date Tray Gama MD [address] [place] [address] PCP - General Family Practice 08/15/21 Sherlyn Delgado MD, [address] [place], [place] [address] Physician Radiation Oncology 07/17/16 Shannon Shelby RN Specialty Control Operator Flow Coat Oncology 12/19/17 Forming Machine 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 Mechanic Helper Relationship Specialty Start Date End Date Tray Gama MD [address] [place] [place] [address] PCP - General Family Medicine 08/15/21 Sherlyn Delgado MD, [address] [place], [place] [address] Physician Radiation Oncology 07/17/16 Shannon Shelby RN Specialty Control Operator Flow Coat Oncology 12/19/17 Forming Machine Upkeep Mechanic Helper Relationship Specialty Start Date End Date Tray Gama MD [address] [place] [address] PCP - General Family Medicine 08/15/21 Sherlyn Delgado MD, [address] [place] [address] Physician Radiation Oncology 07/17/16 Shannon Shelby RN Specialty Control Operator Flow Coat Oncology 12/19/17 [employer] Upkeep Mechanic Helper Relationship Specialty Start Date End Date Tray Gama MD [address] [place] [address] PCP - General Family Medicine 08/15/21 Sherlyn Delgado MD, [address] [place] [address] Physician Radiation Oncology 07/17/16 Shannon Shelby RN Specialty Control Operator Flow Coat Oncology 12/19/17 Forming Machine Upkeep Mechanic Helper Relationship Specialty Start Date End Date Tray Gama MD [address] [place] [place] [address] PCP - General Family Medicine 08/15/21 Sherlyn Delgado MD, MD [address] [place] [address] Physician Radiation Oncology 07/17/16 Shannon Shelby RN Specialty Control Operator Flow Coat Oncology 12/19/17 Forming Machine Upkeep Mechanic Helper Relationship Specialty Start Date End Date Tray Gama MD [address] [place] [place] [address] PCP - General Family Medicine 08/15/21 Sherlyn Delgado MD, [address] [place], [place] [id number] Physician Radiation Oncology 07/17/16 Shannon Shelby RN Specialty Control Operator Flow Coat Oncology 12/19/17 Reason for Visit (unrecogniz ed section and content) INFORMATION SOURCE (unrecogn ized section and content) DATE CREATED AUTHOR AUTHOR'S ORGANIZ ATION 03/21/2023 [facility] FOR RECORDS PERTAINING TO PATIENTS WHO ARE OR HAVE BEEN ENROLLED IN A CHEMICAL DEPENDENCY/SUBSTANCEABUSE PROGRAM, SOME INFORMATION MAY BE OMITTED. This clinical summary was aggregated from multiple sources. Caution should be exercised in using it in the provision of clinical care. This summary normalizes information from multiple sources, and as a consequence, information in this document may materially change the coding, format and clinical context of patient data. In addition, data may be omitted in some cases. CLINICAL DECISIONS SHOULD BE BASED ON THE PRIMARY CLINICAL RECORDS. [employer] [facility] provides no warranty or guarantee of the accuracy or completeness of information in this document.
== END | disposition home or self-care (01) ==
LOC: CVS 16:23
PROVIDERS: PCP Family Medicine; Referring Provider Physician Assistant Medical; Visit Provider Physician Assistant Medical
DX: R94.31 Abnormal electrocardiogram [ECG] [EKG] (principal); I42.7 Cardiomyopathy due to drug and external agent; I34.0 Nonrheumatic mitral (valve) insufficiency
CPT/HCPCS: 93306

== ENCOUNTER → 2024-07-31 | Outpatient (CLI) | payer MEDICARE, SELFPAY ==
--- NOTE | 2024-07-31 13:43 | CT_ITS ---
EXAM: BRAIN/HEAD W/WO CONTRAST CLINICAL HISTORY: Visual disturbances following a recent fall. COMPARISON: None. TECHNIQUE: Multiple axial tomographic images were obtained with and without intravenous contrast administration. Coronal and sagittal reconstruction was obtained as well. FINDINGS: Mild degree of cerebral atrophy. No acute abnormality is seen. The sinuses are unremarkable. CT/Brain/Head W/WO Contrast IMPRESSION: Mild degree of cerebral atrophy. Reading Location: [facility]
== END | disposition home or self-care (01) ==
PROVIDERS: PCP Family Medicine; Referring Provider Ophthalmology; Visit Provider Ophthalmology
DX: H53.19 Other subjective visual disturbances (principal)
CPT/HCPCS: 70470; Q9967